=== PATIENT | male | born 1990 | race Caucasian/White ===

== ENCOUNTER 2016-09-07 16:17 | Emergency (ER) | payer BC, OTHER ==
[2016-09-07] MEDS ORDERED: DECADRON IM ONE (21:32)
[2016-09-07] MEDS ORDERED: TORADOL IM ONE (21:32)
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
[2016-09-07 22:59] VITALS: BP 132/75
== END 2016-09-07 23:10 | disposition home or self-care (01) ==
LOC: ED 16:17
DX: M54.5 Low back pain (principal); F17.200 Nicotine dependence, unspecified, uncomplicated; V49.49XA Driver injured in collision with other motor vehicles in traffic accident, initial encounter; Y93.9 Activity, unspecified; Y92.9 Unspecified place or not applicable; Y99.9 Unspecified external cause status
CPT/HCPCS: 96372; 99282; J1100; J1885